=== PATIENT | male | born 1955 | race Caucasian/White ===

== ENCOUNTER 2022-09-21 11:25 | Outpatient (REF) | payer MEDICARE, OTHER, SELFPAY ==
[2022-09-21 14:40] LABS: HCT 41.4 % (40.0-50.0); HGB 13.8 g/dL (13.5-17.5); MCH 30.8 pg (27.0-33.0); MCHC 33.3 % (32.0-36.0); MCV 92 fL (80-95); MPV 11.1 fL (8.0-11.0); Platelet Count 220 10^3/uL (130-400); RBC 4.48 10^6/uL (4.36-5.78); RDW 13.1 % (11.8-14.1); RDW-SD 44.6 fL; WBC 4.81 10^3/uL (4.4-10.8)
[2022-09-21 15:31] LABS: ALT 30 U/L (16-63); AST 24 U/L (15-37); Albumin 3.8 g/dL (3.4-5.0); Alkaline Phosphatase 99 U/L (46-116); Anion Gap 6.4 mmol/L (3-11); BUN 25 mg/dL (7-18); Bilirubin, Total 0.7 mg/dL (0.2-1.0); CO2 28.6 mmol/L (21.0-32.0); CREATININE 1.2 mg/dL (0.70-1.30); Calcium 8.2 mg/dL (8.5-10.1); Calculated LDL 101 mg/dL (<100); Chloride 106 mmol/L (98-107); Cholesterol 163 mg/dL (<200); Estimated GFR 67.11 (mL/min/1.73m2); Ferritin 99 ng/mL (26-388); Glucose 101 mg/dL (74-106); HDL Cholesterol 44 mg/dL (40-60); Potassium 4.4 mmol/L (3.5-5.1); Sodium 141 mmol/L (136-145); Total Protein 7.1 g/dL (6.4-8.2); Triglyceride 94 mg/dL (<150)
== END 2022-09-21 11:26 | disposition home or self-care (01) ==
LOC: NCHCN 11:25
PROVIDERS: PCP Family Medicine; Visit Provider Nurse Practitioner Family
DX: D64.9 Anemia, unspecified (principal); I10 Essential (primary) hypertension; R79.89 Other specified abnormal findings of blood chemistry
CPT/HCPCS: 80053; 80061; 85027; 82728

== ENCOUNTER 2023-08-11 15:23 | Outpatient (REF) | payer MEDICARE, OTHER, SELFPAY ==
[2023-08-11 22:00] LABS: Hemoglobin A1C 5.5 % (<5.7)
[2023-08-11 22:01] LABS: ALT 26 U/L (16-63); AST 19 U/L (15-37); Alkaline Phosphatase 87 U/L (46-116); Anion Gap 9.5 mmol/L (3-11); BUN 25 mg/dL (7-18); Bilirubin, Total 0.7 mg/dL (0.2-1.0); CO2 24.5 mmol/L (21.0-32.0); CREATININE 1.1 mg/dL (0.70-1.30); Calcium 8.5 mg/dL (8.5-10.1); Calculated LDL 88 mg/dL (<100); Chloride 110 mmol/L (98-107); Cholesterol 165 mg/dL (<200); Estimated GFR 74.04 (mL/min/1.73m2); Glucose 97 mg/dL (74-106); HDL Cholesterol 42 mg/dL (40-60); Potassium 4.3 mmol/L (3.5-5.1); Sodium 144 mmol/L (136-145); Triglyceride 175 mg/dL (<150)
[2023-08-12 18:10] LABS: PSA, Screening 1.1 ng/mL (<=4.5)
== END 2023-08-11 15:24 | disposition home or self-care (01) ==
LOC: NCHCN 15:23
PROVIDERS: PCP Family Medicine; Visit Provider Nurse Practitioner Family
DX: I10 Essential (primary) hypertension (principal); R73.9 Hyperglycemia, unspecified; E78.2 Mixed hyperlipidemia; Z12.5 Encounter for screening for malignant neoplasm of prostate
CPT/HCPCS: 80053; 80061; 84153; 83036

== ENCOUNTER 2024-08-06 10:53 | Outpatient (REF) | payer MEDICARE, OTHER, SELFPAY ==
[2024-08-06 14:48] LABS: HCT 43.5 % (40.0-50.0); HGB 14.6 g/dL (13.5-17.5); MCH 31.2 pg (27.0-33.0); MCHC 33.6 % (32.0-36.0); MCV 93 fL (80-95); MPV 10.9 fL (8.0-11.0); Platelet Count 256 10^3/uL (130-400); RBC 4.68 10^6/uL (4.36-5.78); RDW 12.8 % (11.8-14.1); RDW-SD 43.8 fL; WBC 5.62 10^3/uL (4.4-10.8)
[2024-08-06 15:08] LABS: ALT 19 U/L (16-63); AST 21 U/L (15-37); Albumin 4.1 g/dL (3.4-5.0); Alkaline Phosphatase 105 U/L (46-116); Anion Gap 6.4 mmol/L (3-11); BUN 23 mg/dL (7-18); Bilirubin, Total 0.7 mg/dL (0.2-1.0); CO2 29.6 mmol/L (21.0-32.0); CREATININE 1.1 mg/dL (0.70-1.30); Calcium 9.2 mg/dL (8.5-10.1); Calculated LDL 124 mg/dL (<100); Chloride 107 mmol/L (98-107); Cholesterol 191 mg/dL (<200); Estimated GFR 73.58 (mL/min/1.73m2); Ferritin 93 ng/mL (26-388); Glucose 101 mg/dL (74-106); HDL Cholesterol 58 mg/dL (>or=40); Potassium 4.1 mmol/L (3.5-5.1); Sodium 143 mmol/L (136-145); Total Protein 7.8 g/dL (6.4-8.2); Triglyceride 47 mg/dL (<150)
[2024-08-06 22:26] LABS: PSA, Screening 1.3 ng/mL (<=4.5)
== END 2024-08-06 10:54 | disposition home or self-care (01) ==
LOC: NCHCN 10:53
PROVIDERS: PCP Family Medicine; Visit Provider Nurse Practitioner Family
DX: I10 Essential (primary) hypertension (principal); D50.9 Iron deficiency anemia, unspecified; Z12.5 Encounter for screening for malignant neoplasm of prostate; Z13.220 Encounter for screening for lipoid disorders
CPT/HCPCS: 80053; 80061; 84153; 85027; 82728